=== PATIENT | male | born 1980 | race Caucasian/White ===

== ENCOUNTER 2019-08-29 17:17 | Emergency (ER) | payer MEDICARE, MEDICAID ==
[~2019-08-29] VITALS: Ht 185.4 cm; Wt 105.0 kg
[~2019-08-29 17:17] MED LIST: ACET325T14 PO; CARB200T PO; CITA20TA9 PO; DIVA500T2 PO; LITH300T3 PO; OLAN20TA3 PO; RISP2TAB35 PO; TRAZ50TA66 PO
[2019-08-29 17:28] VITALS: BP 141/109
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
[2019-08-29] MEDS ORDERED: MULT1TAB96 PO (17:59)
[2019-08-29] MEDS ORDERED: NICO4GUM5 PO (17:59)
[2019-08-29] MEDS ORDERED: VIT1CAPS16 PO (17:59)
[2019-08-29] MEDS ORDERED: IBUP-1222 PO (17:59)
[2019-08-29 18:00] LABS: BASOPHILS # (AUTO) 0.03 x10^3/uL (0-0.1); BASOPHILS % (AUTO) 1 % (0-1); EOSINOPHILS # (AUTO) 0.28 x10^3/uL (0-0.4); EOSINOPHILS % (AUTO) 4 % (1-7); LYMPHOCYTES # (AUTO) 2.48 x10^3/uL (1-3.4); LYMPHOCYTES % (AUTO) 39 % (22-44); MD NO; MEAN CORPUSCULAR HEMOGLOBIN 30.6 pg (27.5-34.5); MEAN CORPUSCULAR HGB CONC 32.5 g/dL (33.2-36.2); MEAN CORPUSCULAR VOLUME 94.2 fL (81-97); MEAN PLATELET VOLUME 8.1 fL (7.4-10.4); MONOCYTES # (AUTO) 0.58 x10^3/uL (0.2-0.8); MONOCYTES % (AUTO) 9 % (2-9); NEUTROPHILS # (AUTO) 3.03 x10^3/uL (1.8-6.8); NEUTROPHILS % (AUTO) 47 % (42-75); PLATELET COUNT 258 x10^3/uL (130-400); RED BLOOD COUNT 4.46 x10^6/uL (4.38-5.82)
[2019-08-29 18:04] LABS: ALBUMIN 3.6 g/dL (3.4-5.0); ANION GAP 7 mmol/L (5-15); CALCIUM 8.7 mg/dL (8.5-10.1); CHLORIDE 106 mmol/L (98-107); CREATININE 0.75 mg/dL (0.7-1.3); SALICYLATE LEVEL 4.1 mg/dL (2.8-20.0)
--- NOTE | 2019-08-29 18:16 | NUR ---
[facility], [facility]. LISA MANN,
[2019-08-29 18:20] LABS: AMPHETAMINE SCREEN, URINE Negative (Negative); BARBITURATE SCREEN, URINE Negative (Negative); BENZODIAZEPINE SCREEN, URINE Negative (Negative); CANNABINOID SCREEN, URINE Negative (Negative); COCAINE SCREEN, URINE Negative (Negative); METHADONE SCREEN, URINE Negative (Negative); OPIATE SCREEN, URINE Negative (Negative)
--- NOTE | 2019-08-29 18:20 | NUR ---
MEAL TRAY PROVIDED. SITTER AT DOORWAY.
== END 2019-08-29 19:58 | disposition home or self-care (01) ==
LOC: ED 18:41
DX: F32.9 Major depressive disorder, single episode, unspecified (principal); Z00.00 Encounter for general adult medical examination without abnormal findings; Z87.891 Personal history of nicotine dependence
CPT/HCPCS: 36415; 80048; 80307; 82040; 85025; 99283

== ENCOUNTER 2019-10-24 13:28 | Emergency (ER) | payer MEDICARE, MEDICAID ==
[~2019-10-24] VITALS: Ht 182.9 cm; Wt 90.0 kg
[~2019-10-24 13:28] MED LIST changes: +IBUP-1222 PO; +MULT1TAB96 PO; +NICO4GUM5 PO; +VIT1CAPS16 PO
[2019-10-24 13:33] VITALS: BP 160/91
--- NOTE | 2019-10-24 13:40 | NUR ---
PT BIB [facility] FOR SI. PT TEARFUL, DEPRESSED, SAD. DENIES ANY ACTIVE PLAN OR INTENT TO COMMIT SI. 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 STATES THIS IS THE REASON HE IS SAD.
[2019-10-24 14:04] LABS: BASOPHILS # (AUTO) 0.02 x10^3/uL (0-0.1); BASOPHILS % (AUTO) 0 % (0-1); EOSINOPHILS # (AUTO) 0.03 x10^3/uL (0-0.4); EOSINOPHILS % (AUTO) 0 % (1-7); LYMPHOCYTES # (AUTO) 1.68 x10^3/uL (1-3.4); LYMPHOCYTES % (AUTO) 17 % (22-44); MD NO; MEAN CORPUSCULAR HEMOGLOBIN 30.1 pg (27.5-34.5); MEAN CORPUSCULAR HGB CONC 33.1 g/dL (33.2-36.2); MEAN PLATELET VOLUME 7.6 fL (7.4-10.4); MONOCYTES # (AUTO) 1.21 x10^3/uL (0.2-0.8); MONOCYTES % (AUTO) 12 % (2-9); NEUTROPHILS # (AUTO) 7.14 x10^3/uL (1.8-6.8); NEUTROPHILS % (AUTO) 71 % (42-75); PLATELET COUNT 239 x10^3/uL (130-400); RED BLOOD COUNT 5.04 x10^6/uL (4.38-5.82); RED CELL DISTRIBUTION WIDTH 14.2 % (9.4-14.8)
--- NOTE | 2019-10-24 14:13 | NUR ---
RECIEVED REPORT FROM RAKESH SCHWAB. ASSUMED CARE
[2019-10-24 14:15] LABS: ALANINE AMINOTRANSFERASE 17 U/L (12-78); ALBUMIN 3.8 g/dL (3.4-5.0); ANION GAP 10 mmol/L (5-15); CHLORIDE 105 mmol/L (98-107); CREATININE 0.98 mg/dL (0.7-1.3); SALICYLATE LEVEL 3.6 mg/dL (2.8-20.0)
[2019-10-24 14:17] LABS: ALKALINE PHOSPHATASE 107 U/L (45-117); BILIRUBIN,TOTAL 0.6 mg/dL (0.2-1.0); TOTAL PROTEIN 7.3 g/dL (6.4-8.2)
[2019-10-24 14:38] LABS: AMPHETAMINE SCREEN, URINE Negative (Negative); BARBITURATE SCREEN, URINE Negative (Negative); BENZODIAZEPINE SCREEN, URINE Negative (Negative); CANNABINOID SCREEN, URINE Negative (Negative); COCAINE SCREEN, URINE Negative (Negative); METHADONE SCREEN, URINE Negative (Negative); OPIATE SCREEN, URINE Negative (Negative)
--- NOTE | 2019-10-24 16:00 | NUR ---
LATE ENTRY: [facility].
--- NOTE | 2019-10-24 16:45 | NUR ---
[facility] [employer] REP, CONTACTED SHELTER AND SPOKE WITH A MAN NAMED LISA. LISA SAID HE WOULD BE COMING WITHIN AN HOUR TO ACCOUNTS RECEIVABLE ACCOUNTANT PT
--- NOTE | 2019-10-24 18:26 | NUR ---
PT STILL HERE. [facility] HAS NOT COME YET. AND HAS NOT ANSWERED PHONE CALLS
--- NOTE | 2019-10-24 18:59 | NUR ---
REPORT GIVEN TO RAKESH MARTINI AND RAKESH RODRIGUEZ.
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
== END 2019-10-24 19:20 | disposition home or self-care (01) ==
LOC: ED 14:39
DX: L02.511 Cutaneous abscess of right hand (principal); F20.9 Schizophrenia, unspecified
CPT/HCPCS: 36415; 80053; 80164; 80307; 85025; 99283

== ENCOUNTER 2020-08-17 13:26 | Emergency (ER) | payer MEDICARE, MEDICAID ==
[~2020-08-17] VITALS: Ht 185.4 cm; Wt 105.0 kg
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
--- NOTE | 2020-08-17 13:46 | NUR ---
FREYA PSYCH HOT METAL CRANE OPERATOR AT BEDSIDE FOR EVALUATION.
--- NOTE | 2020-08-17 13:58 | NUR ---
ALL PATIENT BELONGINGS TAKEN AND LOCKED IN CABINET, WARM BLANKET PROVIDED, SITTER IN LINE OF SIGHT.
--- NOTE | 2020-08-17 14:21 | NUR ---
ERMD AT BEDSIDE FOR EVALUATION.
--- NOTE | 2020-08-17 14:59 | NUR ---
TOOLMAKER GRADE THREE AT BEDSIDE FOR EVALUATION.
--- NOTE | 2020-08-17 15:12 | NUR ---
PATIENT TRANSFERRED TO ROOM 10, DOES NOT NEED A SITTER, PATIENT IS NOT ON A LEGAL HOLD.
[2020-08-17 15:22] LABS: CHLORIDE 111 mmol/L (98-107)
[2020-08-17 15:29] LABS: ALANINE AMINOTRANSFERASE 14 U/L (12-78); ALBUMIN 3.5 g/dL (3.4-5.0); ALKALINE PHOSPHATASE 80 U/L (45-117); ANION GAP 5 mmol/L (5-15); BILIRUBIN,TOTAL 0.3 mg/dL (0.2-1.0); CALCIUM 8.7 mg/dL (8.5-10.1); CREATININE 0.87 mg/dL (0.7-1.3); SALICYLATE LEVEL 2.4 mg/dL (2.8-20.0); TOTAL PROTEIN 6.5 g/dL (6.4-8.2)
[2020-08-17 15:30] LABS: BASOPHILS % (AUTO) 0 % (0-1); EOSINOPHILS % (AUTO) 6 % (1-7); LYMPHOCYTES % (AUTO) 40 % (22-44); MEAN CORPUSCULAR HGB CONC 34.3 g/dL (33.2-36.2); MEAN PLATELET VOLUME 8.1 fL (7.4-10.4); MONOCYTES % (AUTO) 12 % (2-9); NEUTROPHILS % (AUTO) 42 % (42-75); PLATELET COUNT 185 x10^3/uL (130-400); RED BLOOD COUNT 4.19 x10^6/uL (4.38-5.82); RED CELL DISTRIBUTION WIDTH 13.5 % (9.4-14.8)
[2020-08-17 15:30] LABS: AMPHETAMINE SCREEN, URINE Negative (Negative); BARBITURATE SCREEN, URINE Negative (Negative); BENZODIAZEPINE SCREEN, URINE Negative (Negative); CANNABINOID SCREEN, URINE Negative (Negative); COCAINE SCREEN, URINE Negative (Negative); METHADONE SCREEN, URINE Negative (Negative); OPIATE SCREEN, URINE Negative (Negative)
--- NOTE | 2020-08-17 15:38 | NUR ---
FOOD TRAY PROVIDED, PATIENT SITTING IN GURNEY WATCHING TV, NADN, VSS, CALL LIGHT WITHIN REACH.
[2020-08-17 15:40] LABS: MD NO
--- NOTE | 2020-08-17 16:16 | NUR ---
SPOKE WITH [employer] SERVICES MANAGER, PATIENT AGREEABLE TO GO BACK TO [facility]. [employer] MANAGER WILL ARRANGE TRANSPORTATION TO [facility].
[2020-08-17 17:32] VITALS: BP 102/69
--- NOTE | 2020-08-17 17:39 | NUR ---
STAFF MEMBER FROM [facility] HERE FOR PATIENT. PATIENT GIVEN DISCHARGE PAPERWORK, ALL QUESTIONS ANSWERED. ALL PATIENT BELONGINGS GIVEN BACK TO PATIENT. PATIENT STABLE AND AMBULATORY WITH STEADY GAIT FROM ED WITH STAFF MEMBER.
== END 2020-08-17 17:40 | disposition home or self-care (01) ==
LOC: ED 16:31
DX: F32.9 Major depressive disorder, single episode, unspecified (principal); R45.851 Suicidal ideations; R62.50 Unspecified lack of expected normal physiological development in childhood; G40.909 Epilepsy, unspecified, not intractable, without status epilepticus
CPT/HCPCS: 36415; 80053; 80299; 80307; 80320; 80329; 85025; 99283; G0480